=== PATIENT | female | born 1985 | race Two or more races ===

== ENCOUNTER 2023-08-12 16:40 | Emergency (ER) | payer OTHER ==
[2023-08-12 16:45] VITALS: TEMP 98.7; BMI 30.3
[2023-08-12 18:36] LABS: URINE APPEARANCE CLEAR; URINE BILIRUBIN NEGATIVE (NEGATIVE); URINE COLOR YELLOW; URINE GLUCOSE (UA) NEGATIVE (NEGATIVE); URINE KETONE NEGATIVE (NEGATIVE); URINE LEUK ESTERASE NEGATIVE (NEGATIVE); URINE NITRITE NEGATIVE (NEGATIVE); URINE PROTEIN NEGATIVE (NEGATIVE); URINE UROBILINOGEN 0.2 mg/dL (0.2-1.0)
[2023-08-12 18:37] LABS: BASO % 0.6 % (0-2.0); EOS % 0.8 % (0-4.5); HEMATOCRIT 41.4 % (32.4-45.2); HEMOGLOBIN 13.9 GM/dL (10.7-15.3); LYMPH % 26.9 % (8-40); MCH 28.3 pg (25.7-33.7); MCHC 33.7 g/dl (32.0-36.0); MEAN CELL VOLUME 84.1 fl (80-96); MEAN PLT VOLUME 8.4 fl (7.5-11.1); MONO % 7.8 % (3.8-10.2); NEUT % 63.9 % (42.8-82.8); PLATELET COUNT 350 10^3/uL (134-434); RBC 4.92 M/mm3 (3.60-5.2); RDW 13.5 % (11.6-15.6); WHITE BLOOD COUNT 15.3 K/mm3 (4.0-10.0)
[2023-08-12 19:29] LABS: POTASSIUM 3.8 mmol/L (3.5-5.1)
[2023-08-12 19:31] LABS: CALCIUM 9.5 mg/dL (8.5-10.1)
[2023-08-12 19:32] LABS: ALBUMIN 4.1 g/dl (3.4-5.0); BLOOD UREA NITROGEN 8.8 mg/dL (7-18)
[2023-08-12 19:34] LABS: CREATININE 0.6 mg/dL (0.55-1.3)
[2023-08-12 19:36] LABS: BILIRUBIN,TOTAL 0.2 mg/dL (0.2-1); TOT PROT 8.5 g/dl (6.4-8.2)
[2023-08-13] MEDS ORDERED: RHO(D) IMMUNE GLOBULIN 1,500 UNIT DISP.SYRIN IM ONE (00:33)
[2023-08-13 00:35] VITALS: BP 125/65; PULSE 84; RESP 16
== END 2023-08-13 02:00 | disposition home or self-care (01) ==
LOC: JER 16:40
DX: O20.0 Threatened abortion (principal); Z3A.01 Less than 8 weeks gestation of pregnancy
CPT/HCPCS: 36415; 76817-TC; 80053; 81003; 84702; 85025; 86850; 86900; 86901; 87086; 96372; 99284-25; J2790

== ENCOUNTER 2023-08-14 16:00 | Emergency (ER) | payer OTHER ==
[2023-08-14 16:13] VITALS: BP 139/75; PULSE 97; RESP 18; TEMP 97.6; BMI 28.3
== END 2023-08-14 18:53 | disposition home or self-care (01) ==
LOC: JER 16:00
DX: O20.0 Threatened abortion (principal); Z3A.00 Weeks of gestation of pregnancy not specified
CPT/HCPCS: 36415; 84702; 99283-25